=== PATIENT | female | born 1985 | race Caucasian/White ===

== ENCOUNTER 2022-12-05 18:50 | Emergency (ER) | payer OTHER, SELFPAY ==
--- NOTE | ~2022-12-05 | XR_ITS ---
EXAMINATION: XR CHEST CLINICAL INFORMATION: Trauma COMPARISON: 03/09/2018 TECHNIQUE: Frontal view of the chest was obtained. FINDINGS: There is a previous cardiac surgery. Appearance is similar. No gross mediastinal widening on for technique on this limited semiupright portable exam. Lungs are clear. No ectopic air gross rib deformity. XR/XR chest 1V IMPRESSION: Previous transposition of great vessels surgical changes. No acute findings.
[2022-12-05 18:57] VITALS: BP 121/75; PULSE 80; O2SAT 100; BMI 28.3
--- NOTE | 2022-12-05 19:11 | ECG_ITS ---
Test Reason : CHEST PAIN Blood Pressure : / mmHG Vent. Rate : 075 BPM Atrial Rate : 075 BPM P-R Int : 156 ms QRS Dur : 150 ms QT Int : 448 ms P-R-T Axes : 061 153 074 degrees QTc Int : 500 ms Normal sinus rhythm Right bundle branch block Left posterior fascicular block Bifascicular block Abnormal ECG When compared with ECG of 14-SEP-2017 05:51, No significant change was found Referred By: Generic ED Physician Electronically Signed By:CIRO GUDINO MD
[2022-12-05 19:12] VITALS: BP 107/62; PULSE 77; RESP 12; TEMP 36.6; O2SAT 98
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
[2022-12-05 22:16] VITALS: BP 105/59; PULSE 76; RESP 16; TEMP 36.7; O2SAT 98
== END 2022-12-05 22:56 | disposition home or self-care (01) ==
PROVIDERS: Emergency Provider Emergency Medicine
DX: Z04.1 Encounter for examination and observation following transport accident (principal); F19.10 Other psychoactive substance abuse, uncomplicated; Z95.4 Presence of other heart-valve replacement; Z79.899 Other long term (current) drug therapy
CPT/HCPCS: 71045; 93005; 99283; 99284